=== PATIENT | female | born 1990 | race Two or more races ===

== ENCOUNTER 2024-09-11 07:14 | Emergency (ER) | payer MEDICAID, OTHER ==
[~2024-09-11] VITALS: Ht 160 cm; Wt 68.2 kg
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
[2024-09-11] MEDS ORDERED: IBU600T PO (08:46)
[2024-09-11 08:47] VITALS: PULSE 102; RESP 20; O2SAT 96
[2024-09-11] MEDS: IBUPROFEN 600 MG TAB PO ONE (09:55)
[2024-09-11 10:08] VITALS: BP 150/79; PULSE 115; RESP 18; TEMP 98.4; O2SAT 98
== END 2024-09-11 10:09 | disposition home or self-care (01) ==
LOC: ER 07:14 → EDBD 07:14 → ER 10:09
DX: S09.8XXA Other specified injuries of head, initial encounter (principal); M54.2 Cervicalgia; Z88.5 Allergy status to narcotic agent; Y04.8XXA Assault by other bodily force, initial encounter; Y93.89 Activity, other specified; Y92.89 Other specified places as the place of occurrence of the external cause; Y99.8 Other external cause status
CPT/HCPCS: 70450; 72040

== ENCOUNTER 2024-09-19 21:39 | Emergency (ER) | payer MEDICAID ==
[~2024-09-19 21:39] MED LIST: IBU600T PO
== END 2024-09-19 22:38 | disposition left against medical advice (07) ==
LOC: ER 21:39
DX: R07.81 Pleurodynia (principal); Z53.21 Procedure and treatment not carried out due to patient leaving prior to being seen by health care provider

== ENCOUNTER 2024-11-20 22:35 | Emergency (ER) | payer MEDICAID ==
[~2024-11-20] VITALS: Ht 172.7 cm; Wt 81.8 kg
[2024-11-20 22:53] VITALS: BP 113/64; PULSE 130; RESP 26; TEMP 98.5; O2SAT 97
[2024-11-20] MEDS ORDERED: hydrOXYzine 25 MG TAB or CAP PO ONE (23:15)
[2024-11-20] MEDS ORDERED: HYDROcodone-ACET 5/325MG TAB PO ONE (23:15)
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
== END 2024-11-21 02:23 | disposition left against medical advice (07) ==
LOC: EDBD 22:35 → ER 22:35
DX: M79.18 Myalgia, other site (principal); Z79.899 Other long term (current) drug therapy; Z88.5 Allergy status to narcotic agent; Z88.6 Allergy status to analgesic agent; Z79.891 Long term (current) use of opiate analgesic

== ENCOUNTER 2025-01-14 15:52 | Emergency (ER) | payer OTHER, MEDICAID ==
[~2025-01-14] VITALS: Ht 154.9 cm; Wt 54.5 kg
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
[2025-01-14] MEDS ORDERED: NEOMYCIN-BACITRACIN-POLYM UNITDOSE PKG TOP OINT TOP ONE (16:45)
--- NOTE | 2025-01-14 17:12 | DVH ---
CLINICAL INDICATION: FALL TECHNIQUE: 3 radiographic views of the right wrist were obtained. Comparison: None FINDINGS/IMPRESSION: There is no evidence of acute fracture or dislocation. The visualized joint space is well maintained. The alignment is anatomical. There is no radiopaque foreign body.
--- NOTE | 2025-01-14 17:12 | DVH ---
CT HEAD WITHOUT CONTRAST INDICATION: FALL EXAM DATE: 01/14/2025 04:33 PM COMPARISON: CT HEAD WITHOUT CONTRAST on DOS: 09/11/24 RADIATION DOSE: CTDIvol: 54 mGy, DLP: 874 mGy*cm PROCEDURE: CT scans of the head were obtained from the vertex to the skull base. Sagittal and coronal reconstructions were provided. All CT scans at this medical facility are performed using dose modulation techniques as appropriate t o a performed exam including the following: Automated exposure control was utilized; adjustment of th e MA and/or KV according to patient size; and use of iterative reconstruction technique. FINDINGS: The brainshows normal morphology and moe-white matter differentiation, without intracra nial hemorrhage, extra-axial fluid collection, mass effect or acute large vessel infarct. The ventric les are normal in size. The basal cisterns are patent. The skull and visible facial bones are intact. The paranasal sinuses, mastoid air cells and middle ear cavities are well-aerated. The soft tissues of the scalp are unremarkable. IMPRESSION: No acute intracranial abnormality.
--- NOTE | 2025-01-14 17:12 | DVH ---
CLINICAL INDICATION: FALL TECHNIQUE: 3 radiographic views of the right knee were obtained. Comparison: None FINDINGS/IMPRESSION: There is no evidence of acute fracture or dislocation. The visualized joint space is well maintained. The alignment is anatomical. There is no radiopaque foreign body.
--- NOTE | 2025-01-14 17:14 | DVH ---
CLINICAL INDICATION: FALL TECHNIQUE: 3 radiographic views of the left wrist were obtained. Comparison: None FINDINGS/IMPRESSION: There is no evidence of acute fracture or dislocation. The visualized joint space is well maintained. The alignment is anatomical. There is no radiopaque foreign body.
[2025-01-14 17:19] VITALS: BP 116/78; PULSE 81; RESP 17; TEMP 98.7; O2SAT 96
[2025-01-14 19:20] LABS: Urine Bacteria FEW /hpf (None Seen); Urine Blood Negative /uL (Negative); Urine Clarity Clear (Clear); Urine Color Yellow (Yellow); Urine Mucus FEW (None Seen); Urine Protein, UAD Negative (Negative); Urine Specific Gravity 1.027 (1.001-1.035); Urine Squamous Epithelial Cell FEW /hpf (<5); Urine Urobilinogen Normal (Negative); Urine WBC 4 /HPF (0-5)
== END 2025-01-14 19:15 | disposition left against medical advice (07) ==
LOC: ER 15:58
DX: S50.311A Abrasion of right elbow, initial encounter (principal); S80.811A Abrasion, right lower leg, initial encounter; M25.561 Pain in right knee; R51.9 Headache, unspecified; M79.642 Pain in left hand; R21 Rash and other nonspecific skin eruption; Z88.5 Allergy status to narcotic agent; Z88.8 Allergy status to other drugs, medicaments and biological substances; V19.9XXA Pedal cyclist (driver) (passenger) injured in unspecified traffic accident, initial encounter; Y93.55 Activity, bike riding; Y92.89 Other specified places as the place of occurrence of the external cause; Y99.8 Other external cause status
CPT/HCPCS: 70450; 73110; 73562; 81001

== ENCOUNTER 2025-04-12 18:11 | Emergency (ER) | payer MEDICAID, OTHER ==
[~2025-04-12] VITALS: Ht 154.9 cm; Wt 57.5 kg
[2025-04-12 18:12] VITALS: BP 128/84; PULSE 85; RESP 20; TEMP 98.3; O2SAT 98
[2025-04-12 19:02] LABS: Hematocrit 39.1 % (36.0-46.0); Hemoglobin 13.3 g/dL (12.2-16.2); Mean Corpuscular Hemoglobin 30.8 pg (28.0-32.0); Mean Corpuscular Volume 90.3 fL (80.0-100.0); Nucleated Red Blood Cells % 0.0 %
--- NOTE | 2025-04-12 19:13 | ED.PDOC ---
GI ASSESSMENT HPI Comments HPI: 35-year-old female who came to ER for abdominal pain. Patient states she started having lower quadrant abdominal pain 4 days ago. Today, she started having right lower quadrant abdominal pain, intermittent, stabbing, twisting, associated with nausea and dry heaving. Denies any urinary symptoms. Patient unsure if she is Initial Vitals BP: 128/84 HR:85 RR: 20 O2: 98% Temp: 98.3 Past Medical History: Endometriosis, breast cancer Past Surgical History: Social History: Denies ETOH, smoking, and drug use. Medications: Allergies: HPI: Poor Historian. REVIEW OF SYSTEMS: CONSTITUTIONAL: Denies acute: fever, diaphoresis, chills, generalized weakness. HEAD: Denies acute: headache, photophobia Eyes: Denies acute: Double vision, vision loss, eye pain, eye discharge. EARS: Denies acute: tinnitus, hearing loss, ear discharge, ear pain, THROAT: Denies acute: sore throat, swelling, difficulty swallowing , pain with swallowing, change in voice. NECK: Denies acute: neck pain, neck swelling, stiff neck. HEART: Denies acute : chest pain, palpitations, LUNGS: Denies acute: SOB, wheezing, cough, hemoptysis ABDOMEN: Denies acute: , Vomiting, diarrhea, melena , hematemesis, hematochezia SKIN: Denies acute: rash, redness, lesions, itchiness. EXTREMITIES: Denies acute: calf pain, numbness, tingling, weakness, denies pain in extremity. Denies acute: Low back pain. Neuro: Denies acute: focal neurological deficit, motor or sensory focal neurological deficit, tremors, seizure like activity, confusion, dizziness, change in mental status, loss of bowel or bladder function, cauda equina like symptoms. : Denies acute: dysuria, hematuria, flank pain, increase in urinary frequency. PSYCH: Denies acute: hallucination, suicidal ideation, homicidal ideation. FEMALE: Denies acute: abnormal vaginal bleeding, foul odor, unusual discharge. PHYSICAL EXAM: General: ----moderate---acute distress, awake and alert. Head: normocephalic, atraumatic. Neck: supple, trachea is midline, no swelling. Throat: Normal phonation. Eyes:, no erythema, no purulent discharge, no proptosis, no icterus. Heart: regular rate, regular rhythm, no significant murmur appreciated. Lungs: no apparent respiratory distress, Able to speak in full sentences. No wheezing, no rhonchi, no crackles. No stridors Clear to auscultation bilaterally. Abdomen: Right sided abdominal tender to palpation, non distended, soft, no guarding, no rebound, + bowel sounds. Neuro: Awake, Alert, oriented to name, self, situation, follows commands GCS=15. Speech is normal. Skin: no petechia, no purpura, no cyanosis, non-pale, not jaundice. Lower extremities: --no - Pitting edema no deformity, no focal swelling, no calf TTP. Makes eye contact. moves all four extremities. Face: no apparent facial droop. Right CVA tenderness to percussion Ambulating in the ED independently. ED COURSE: DISCLAIMER: This medical document was created using an electronic medical record system with voice recognition software and computerized dictation system. Although this document has been carefully reviewed, there might still be some phonetic and typographical errors. Occasional wrong-word or "sound-alike" substitutions may have occurred due to the inherent limitations of voice recognition software. These areas are purely typographical due to imperfections of the software programs and do not reflect any compromise in the patient's medical care. Please read the chart carefully and recognize, using context, where these substitutions have occurred. Chief Complaint: Abdominal Pain Time Seen by MD: 19:12 Primary Care Provider: unknown Allergies: Coded Allergies: Acetaminophen (Verified Allergy, Unknown, 09/11/24) Hydrocodone (Verified Allergy, Unknown, 09/11/24) Morphine (Verified Allergy, Unknown, 09/11/24) Home Meds Active Scripts Ibuprofen Micronized (MOTRIN TABLET) 600 Mg Tb, 600 MG PO TID PRN for 3 Days, #9 TAB *Black box warning-NSAIDS can increase risk of ID & hypertension, GI irritation, ulceration, bleed, perferation. Do not use post cardiac surgery. Use short duration/lowest effective dose. Prov:BITA CALVILLO MD 09/11/24 Information Source: Patient Mode of Arrival: Ambulatory Past Medical History PAST MEDICAL HISTORY: Cancer Surgical History: LENS GENERATOR History: No Pertinent LENS GENERATOR History Family History Family History: Reviewed,noncontributory to illness Social History Smoker: Non-Smoker Alcohol: Denies ETOH Use Drugs: Denies Drug Use Lives In: Home Was a procedure done? Was a procedure done?: No GI differential Dx Differential Diagnosis: Other (DDX include Diverticulitis, colitis, gastroenteritis, acute abdomen, SBO, enteritis, constipation, volvulus, appendic itis, Gallbladder disease, choledocolithiasis, ascending cholangitis, pancreatitis, intraAbdominal mass/neoplasm, hepatitis, UTI, pylonephritis, kidney stone, aneurysm, dissection, Inflammatory bowel disease, gastroparesis, ischemic bowel, ovarian torsion, ovarian cyst/mass, tubo-ovarian abscess, , ectopic , PID, STD.) X-Ray, Labs, Meds, VS Vital Signs Date Time Temp Pulse Resp B/P (MAP) Pulse Ox O2 Delivery O2 Flow Rate FiO2 04/12/25 18:12 98.3 85 20 128/84 98 98.3 Lab Test 04/12/25 20:18 04/12/25 18:58 04/12/25 18:36 Range/Units Troponin I High Sensitivity < 3 L < 3 L </=34 ng/L Urine Color Yellow Yellow Urine Clarity Clear Clear Urine pH 6.0 5.0-9.0 Urine Specific [place] 1.032 1.001-1.035 Urine Protein Trace H Negative Urine Ketones 2+ H Negative Urine Blood Trace H Negative /uL Urine Nitrite Negative Negative Urine Bilirubin Negative Negative Urine Urobilinogen Normal Negative mg/dL Urine Leukocyte Esterase Trace Negative /uL Urine RBC 7 0 - 4 /hpf Urine Microscopic WBC 12 H 0-5 /HPF Urine Squamous Epithelial Cells Few <5 /hpf Urine Bacteria None seen None Seen /hpf Urine Mucus Few None Seen Urine Glucose Normal Normal mg/dL Urine Test Negative Negative White Blood Count 9.9 4.4-10.8 10^3/uL Red Blood Count 4.33 4.0-5.20 10^6/uL Hemoglobin 13.3 12.2-16.2 g/dL Hematocrit 39.1 36.0-46.0 % Mean Corpuscular Volume 90.3 80.0-100.0 fL Mean Corpuscular Hemoglobin 30.8 28.0-32.0 pg Mean Corpuscular Hemoglobin Concent 34.1 32.0-36.0 g/dL Red Cell Distribution Width 12.6 11.8-14.3 % Platelet Count 309 140-450 10^3/uL Mean Platelet Volume 8.7 6.9-10.8 fL Neutrophils (%) (Auto) 75.9 37.0-80.0 % Lymphocytes (%) (Auto) 17.5 10.0-50.0 % Monocytes (%) (Auto) 5.0 0.0-12.0 % Eosinophils (%) (Auto) 0.8 0.0-7.0 % Basophils (%) (Auto) 0.8 0.0-2.0 % Neutrophils # (Auto) 7.5 1.6-8.6 10 ^3/uL Lymphocytes # (Auto) 1.7 0.4-5.4 10 ^3/uL Monocytes # (Auto) 0.5 0-1.3 10 ^3/uL Eosinophils # (Auto) 0.1 0-0.8 10 ^3/uL Basophils # (Auto) 0.1 0-0.2 10 ^3/uL Nucleated Red Blood Cells 0.0 % Sodium Level 143 136-145 mmol/L Potassium Level 3.6 3.5-5.1 mmol/L Chloride Level 107 98-107 mmol/L Carbon Dioxide Level 24 20-31 mmol/L Anion Gap 12 5-15 Blood Urea Nitrogen 12 9-23 mg/dL Creatinine 1.10 H 0.550-1.02 mg/dL Glomerular Filtration Rate Calc 68 >90 mL/min BUN/Creatinine Ratio 10.9 10.0-20.0 Serum Glucose 82 74-106 mg/dL Lactic Acid Level 1.0 0.4-2.0 mmol/L Calcium Level 9.7 8.7-10.4 mg/dL Total Bilirubin 0.5 0.2-1.0 mg/dL Aspartate Amino Transferase (AST) 11 L 13-40 U/L Alanine Aminotransferase (ALT) < 9 7-40 U/L Alkaline Phosphatase 60 46-116 U/L Total Protein 6.9 5.7-8.2 g/dL Albumin 4.6 3.2-4.8 g/dL Lipase 29 12-53 U/L Time of 1ST Reevaluation: 19:13 Reevaluation 1ST: Unchanged Patient Education/Counseling: Diagnosis, Treatment Family Education/Counseling: No Family Present Comments Patient eloped SEPSIS Sepsis Screen Date sepsis recognized/suspect: Apr 12, 2025 Time Sepsis recognized/suspect: 1813 Recent Procedure: No On Antibiotic Therapy: No Respiratory Rate >20: No Heart Rate >90: No Temp<36 C (96.8 F) or >38.3 C: No SBP <90 or MAP <65 mmHG: No New Acute Mental Status Change: No Is the patient on CPAP, BIPAP,: No Physician Orders Central Supply Worker (04/12/25 ) Electrocardigram (04/12/25 18:20) Vital Signs Date Time Temp Pulse Resp B/P (MAP) Pulse Ox O2 Delivery O2 Flow Rate FiO2 04/12/25 18:12 98.3 85 20 128/84 98 98.3 Laboratory Tests Test 04/12/25 18:36 Lactic Acid Level 1.0 mmol/L (0.4-2.0) White Blood Count 9.9 10^3/uL (4.4-10.8) Departure 1 Departure Time of Disposition: 05:33 Impression: Primary Impression: Urinary tract infection Additional Impression: Eloped from emergency department Disposition: 07 LEFT AWOL/ELOPED Condition: Other Additional Instructions: Patient eloped Critical Care Note Critical Care Time?: No I personally scribed for ANDREI SEGAL DO ([email or web address]) on 04/12/25 at 19:13. Electronically submitted by Jairo Diaz ([email or web address]). ANDREI SEGAL DO Apr 12, 2025 19:13
[2025-04-12 19:14] LABS: Albumin 4.6 g/dL (3.2-4.8); Alkaline Phosphatase 60 U/L (46-116); Anion Gap 12 (5-15); BUN/Creatinine Ratio 10.9 (10.0-20.0); Blood Urea Nitrogen 12 mg/dL (9-23); Calcium 9.7 mg/dL (8.7-10.4); Carbon Dioxide 24 mmol/L (20-31); Glucose 82 mg/dL (74-106); Lipase 29 U/L (12-53); Potassium 3.6 mmol/L (3.5-5.1); Sodium 143 mmol/L (136-145); Total Protein 6.9 g/dL (5.7-8.2)
[2025-04-12 19:15] LABS: Bilirubin, Total 0.5 mg/dL (0.2-1.0)
[2025-04-12 19:19] LABS: Urine Protein, UAD TRACE (Negative)
[2025-04-12 19:20] LABS: Alanine Aminotransferase < 9 U/L (7-40); Chloride 107 mmol/L (98-107)
== END 2025-04-12 22:06 | disposition left against medical advice (07) ==
LOC: ER 18:11
DX: R10.31 Right lower quadrant pain (principal); R11.0 Nausea; Z88.5 Allergy status to narcotic agent; Z79.899 Other long term (current) drug therapy
CPT/HCPCS: 36415; 80053; 81001; 81025; 83605; 83690; 84484; 85025